=== PATIENT | male | born 1960 | race Caucasian/White ===

== ENCOUNTER 2017-02-01 13:31 | Emergency (ER) | payer OTHER ==
[~2017-02-01] VITALS: Wt 69.0 kg
[2017-02-01] MEDS ORDERED: SOD CHLORIDE 0.9% 500 ML IV STA (16:52)
[2017-02-01 17:25] LABS: ADD SCAN DIFF NO
[2017-02-01 17:32] LABS: BASOPHILS % 0.4 % (0.0-2.0); EOSINOPHILS % 0.4 % (0.0-7.0); HEMATOCRIT 40.7 % (42.0-52.0); HEMOGLOBIN 14.7 g/dl (14.0-18.0); LYMPHOCYTES # 2.9 10^3/ul (0.8-2.9); LYMPHOCYTES % 34.9 % (15.0-51.0); MEAN CORPUSCULAR HEMOGLOBIN 31.6 pg (29.0-33.0); MEAN CORPUSCULAR HGB CONC 36.1 g/dl (32.0-37.0); MEAN CORPUSCULAR VOLUME 87.5 fl (82.0-101.0); MEAN PLATELET VOLUME 8.9 fl (7.4-10.4); MONOCYTE # 0.6 10^3/ul (0.3-0.9); MONOCYTES % 7.3 % (0.0-11.0); NEUTROPHIL # 4.7 10^3/ul (1.6-7.5); NEUTROPHILS % 56.8 % (39.0-77.0); PLATELET COUNT 166 10^3/UL (140-415); RED BLOOD COUNT 4.65 10^6/ul (4.70-6.10); RED CELL DISTRIBUTION WIDTH 13.5 % (11.5-14.5); WHITE BLOOD COUNT 8.2 10^3/ul (4.8-10.8)
[2017-02-01 17:45] LABS: ADD UMIC YES; UR ASCORBIC ACID NEGATIVE (NEGATIVE); UR BACTERIA FEW /HPF (NONE SEEN); UR BILIRUBIN (Dip) NEGATIVE (NEGATIVE); UR BLOOD (Dip) 1+ mg/dL (NEGATIVE); UR CLARITY CLEAR (CLEAR); UR COLOR STRAW (YELLOW); UR GLUCOSE (Dip) NEGATIVE (NEGATIVE); UR KETONES (Dip) NEGATIVE (NEGATIVE); UR LEUKOCYTE ESTERASE (Dip) NEGATIVE Leu/ul (NEGATIVE); UR NITRITE (Dip) NEGATIVE (NEGATIVE); UR RBC 0 /HPF (0-5); UR SPECIFIC GRAVITY (Dip) 1.003 (1.003-1.030); UR TOTAL PROTEIN (Dip) 2+ mg/dl (NEGATIVE); UR UROBILINOGEN (Dip) NEGATIVE (NEGATIVE)
[2017-02-01 17:46] LABS: ALBUMIN 4.5 g/dl (3.3-4.9); ALBUMIN/GLOBULIN RATIO 1.02; BILIRUBIN,INDIRECT 0.1 mg/dl (0-1.1); BILIRUBIN,TOTAL 0.1 mg/dl (0.2-1.3); CALCIUM 8.8 mg/dl (8.4-10.2); CREATININE 0.79 mg/dl (0.61-1.24); POTASSIUM 4.3 mmol/L (3.5-5.1); TOTAL PROTEIN 8.9 g/dl (6.1-8.1)
[2017-02-01] MEDS ORDERED: morphine 4 MG/ML VIAL IV STA (18:14)
[2017-02-01] MEDS ORDERED: QUET200T PO (18:21)
[2017-02-01] MEDS ORDERED: BEN25 PO (18:21)
[2017-02-01] MEDS ORDERED: BUSP10TA2 PO (18:22)
--- NOTE | 2017-02-01 19:35 | RADRPT ---
PROCEDURE: CT Abdomen and Pelvis without contrast. CLINICAL INDICATION: Pain. TECHNIQUE: CT scan of the abdomen and pelvis was performed on a multidetector slice CT scanner. No intravenous contrast material was utilized. Sagittal and coronal reformatted images were obtained fr om the axial source images. Images were reviewed on a high-resolution PACS workstation. Exam CTDlvol = 0.3 mGy and DLP = 464 Gy-cm. One of the following 3 dose reduction techniques were used: Automate d exposure control; adjustment of the mA and/or kV according to patient size; or use of iterative re construction technique. COMPARISON: None. FINDINGS: There is no obstruction or ileus. The appendix is visualized and is normal in appearance. There is no evidence for appendicitis.. There are scattered left and sigmoid colon diverticuli without evide nce for diverticulitis. There is no free fluid. The liver is enlarged and 17.6 cm and diffusely hypodense/fatty.. No intrahepatic lesions are identi fied. The gallbladder is normal in appearance. There is no definite biliary ductal dilation. Pancrea s is normal in appearance. The spleen is unremarkable.. There are no adrenal masses. The aorta is no rmal caliber. Atherosclerotic vascular calcifications are present.. There is punctate nonobstructing left renal calcification. There is no hydronephrosis, mass or obst ructing calculus.. Ureters are of normal caliber and without evidence for an obstructing calculus. The urinary bladder is distended with minimal diffuse wall thickening. Prostate gland is normal in size. Limited evaluation of the lung bases demonstrates bibasilar atelectasis.. There are degenerative changes of the lumbar spine there is L5-S1 with disk space narrowing, endplat e hypertrophic changes and posterior disk osteophyte complex.. IMPRESSION: 1. No obstructive uropathy. Nonobstructing punctate left renal calcification. Distended urinary b ladder. 2. Scattered left and sigmoid colon diverticuli without evidence for diverticulitis. 3. No bowel obstruction or ileus. 4. No evidence for appendicitis. 5. Enlarged fatty liver. 6. Degenerative changes lower lumbar spine. RPTAT: [facility]K .Tobin Shelby MD, MD Date Time Electronically viewed and signed by .Tobin Shelby MD, on 02/01/2017 19:35 .K/
--- NOTE | 2017-02-01 19:48 | ERD ---
ER Documentation Chief Complaint Date/Time DATE: 02/01/17 TIME: 19:47 Chief Complaint ABD PAIN AND BACKPAIN FOR THE PAST 5 DAYS. DISTENDED ABD AND FIRM HPI This is a 36-year-old male who presents to the emergency room for evaluation of back pain for the last 5 days. He states it is his back pain is an aching pain with no radiation. He states that his abdominal cramping associated with this and thus he has a history of liver cirrhosis. The patient does state that he continues to use alcohol daily. ROS All systems reviewed and are negative except as per history of present illness. Medications Home Meds Reported Medications Buspirone Hcl* (Buspirone Hcl*) 10 Mg Tab, 10 MG PO QAM, TAB 02/01/17 Diphenhydramine Hcl* (Benadryl*) 25 Mg Cap, 50 MG PO QHS Y for ITCHING, CAP 02/01/17 Quetiapine Fumarate* (Seroquel*) 200 Mg Tablet, 200 MG PO HS, #30 TAB 02/01/17 Allergies Allergies: Coded Allergies: No Known Allergy (Unverified , 02/01/17) PMhx/Soc History of Surgery: No Anesthesia Reaction: No Hx Neurological Disorder: No Hx Respiratory Disorders: No Hx Cardiac Disorders: Yes (HTN) Hx Psychiatric Problems: No Hx Miscellaneous Medical Probl: Yes (CIRRHOSIS/ASCITES W/ PARACENTESIS, CHRONIC BACK PAIN) Hx Alcohol Use: Yes (ETOH ABUSE / USED TODAY) Hx Substance Use: No Hx Tobacco Use: No Smoking Status: Former smoker Physical Exam Vitals Vital Signs Date Time Temp Pulse Resp B/P Pulse Ox O2 Delivery O2 Flow Rate FiO2 02/01/17 13:37 98.8 88 20 166/85 98 Physical Exam Const: No acute distress Head: Atraumatic Eyes: Normal Conjunctiva ENT: Normal External Ears, Nose and Mouth. Neck: Full range of motion..~ No meningismus. Resp: Clear to auscultation bilaterally Cardio: Regular rate and rhythm, no murmurs Abd: Soft, non tender, non distended. Normal bowel sounds Skin: No petechiae or rashes Back: No midline or flank tenderness Ext: No cyanosis, or edema Neur: Awake and alert Psych: Normal Mood and Affect Result Diagram: 02/01/175 7/17/17 1715 Results 24 hrs Laboratory Tests Test 02/01/17 17:15 02/01/17 17:20 White Blood Count 8.210^3/ul Red Blood Count 4.6510^6/ul Hemoglobin 14.7g/dl Hematocrit 40.7% Mean Corpuscular Volume 87.5fl Mean Corpuscular Hemoglobin 31.6pg Mean Corpuscular Hemoglobin Concent 36.1g/dl Red Cell Distribution Width 13.5% Platelet Count 06301^3/UL Mean Platelet Volume 8.9fl Neutrophils % 56.8% Lymphocytes % 34.9% Monocytes % 7.3% Eosinophils % 0.4% Basophils % 0.4% Nucleated Red Blood Cells % 0.0/100WBC Neutrophils # 4.710^3/ul Lymphocytes # 2.910^3/ul Monocytes # 0.610^3/ul Eosinophils # 0.010^3/ul Basophils # 0.010^3/ul Nucleated Red Blood Cells # 0.010^3/ul Sodium Level 143mmol/L Potassium Level 4.3mmol/L Chloride Level 100mmol/L Carbon Dioxide Level 24mmol/L Anion Gap 23 Blood Urea Nitrogen 5mg/dl Creatinine 0.79mg/dl Glucose Level 85mg/dl Calcium Level 8.8mg/dl Total Bilirubin 0.1mg/dl Direct Bilirubin 0.00mg/dl Indirect Bilirubin 0.1mg/dl Aspartate Amino Transf (AST/SGOT) 83IU/L Alanine Aminotransferase (ALT/SGPT) 54IU/L Alkaline Phosphatase 132IU/L Total Protein 8.9g/dl Albumin 4.5g/dl Globulin 4.40g/dl Albumin/Globulin Ratio 1.02 Lipase 339U/L Urine Color STRAW Urine Clarity CLEAR Urine pH 6.0 Urine Specific [place] 1.003 Urine Ketones NEGATIVEmg/dL Urine Nitrite NEGATIVEmg/dL Urine Bilirubin NEGATIVEmg/dL Urine Urobilinogen NEGATIVEmg/dL Urine Leukocyte Esterase NEGATIVELeu/ul Urine Microscopic RBC 0/HPF Urine Microscopic WBC 0/HPF Urine Bacteria FEW/HPF Urine Hemoglobin 1+mg/dL Urine Glucose NEGATIVEmg/dL Urine Total Protein 2+mg/dl Current Medications Medications (Trade) Dose Ordered Sig/Kati Route PRN Reason Start Time Stop Time Status Last Admin Dose Admin Sodium Chloride (NS) 500 ml @ 500 mls/hr Q1H STAT IV 7/17/17 16:52 02/01/17 17:51 DC 02/01/17 16:52 Morphine Sulfate (morphine) 4 mg ONCE STAT IV 02/01/17 18:14 02/01/17 18:15 DC 02/01/17 18:54 Procedures/MDM CT abdomen pelvis without: 1. No obstructive uropathy. Nonobstructing punctate left renal calcification. Distended urinary bladder. 2. Scattered left and sigmoid colon diverticuli without evidence for diverticulitis. 3. No bowel obstruction or ileus. 4. No evidence for appendicitis. 5. Enlarged fatty liver. 6. Degenerative changes lower lumbar spine. This 46-year-old male presents to the ER for evaluation of back pain and abdominal cramping. Lab work was obtained and the patient does not have any acute lab abnormalities. The patient does have a history of liver cirrhosis and continues to drink daily. CT of abdomen and pelvis does not reveal any obstructive pathology or any acute intra-abdominal pathology that necessitates admission. The patient was given 1 dose of morphine in the ER will be discharged home with a prescription for motion Departure Diagnosis: Primary Impression: Abdominal pain Additional Impression: Chronic back pain Condition: Stable RANDI MORFIN DO Feb 01, 2017 19:48
[2017-02-01] MEDS ORDERED: NAPR-260 PO (19:49)
[2017-02-01 20:01] VITALS: BP 190/96; PULSE 85; RESP 16; TEMP 98.2
== END 2017-02-01 20:02 | disposition home or self-care (01) ==
LOC: E/R 13:31
DX: R10.9 Unspecified abdominal pain (principal); M54.9 Dorsalgia, unspecified; I10 Essential (primary) hypertension; Z87.891 Personal history of nicotine dependence
CPT/HCPCS: 36415; 74176; 80053; 81001; 83690; 85025; 96374; J2270; J7040; Z7502